=== PATIENT | male | born 1995 | race Hispanic/Latino ===

== ENCOUNTER 2018-09-24 14:12 | Emergency (ER) | payer BC, SELFPAY ==
[2018-09-24] MEDS ORDERED: Ondansetron ODT 4 MG TAB ONE (15:57)
[2018-09-24] MEDS ORDERED: Acetaminophen 500 MG TAB ONE (15:57)
== END 2018-09-24 17:28 | disposition home or self-care (01) ==
LOC: ERS 14:12
DX: B34.9 Viral infection, unspecified (principal); F17.210 Nicotine dependence, cigarettes, uncomplicated
CPT/HCPCS: 87804; 99284; Q0162

== ENCOUNTER 2019-05-20 20:54 | Emergency (ER) | payer BC, SELFPAY ==
[2019-05-20] MEDS ORDERED: Ibuprofen 200 MG TAB ONE (22:34)
[2019-05-20] MEDS ORDERED: Ciprofloxacin HCL/Dexameth Otic Drops 7.5 ml Bottle ONE (22:34)
== END 2019-05-20 22:39 | disposition home or self-care (01) ==
LOC: ERS 20:54
DX: H60.91 Unspecified otitis externa, right ear (principal); F17.210 Nicotine dependence, cigarettes, uncomplicated
CPT/HCPCS: 99282

== ENCOUNTER 2020-02-08 07:00 | Day surgery (SDC) | payer SELFPAY ==
--- NOTE | 2020-02-08 08:41 | RAD ---
RIGHT HAND 3 VIEWS: Date: 02/08/2020 HISTORY: Injury from trauma. FINDINGS: Minimal soft tissue swelling dorsally over the distal metacarpal region of the hand. This appears to be somewhat more prominent between the third and fourth digits. There is noted on the lateral view qu estionable small, thin foreign body. No fracture or dislocation. Focal soft tissue swelling dorsally over the third, fourth, and fifth distal metacarpal region. Possi ble several tiny foreign bodies. No fracture or dislocation. IMPRESSION: No acute fracture or dislocation. Possible several small foreign bodies. POS: [facility]
[2020-02-08] MEDS ORDERED: Sodium Chloride 0.9% 20 ML ONE (09:24)
[2020-02-08] MEDS ORDERED: Famotidine/PF 20 mg/2ml Vial ONE (09:31)
[2020-02-08] MEDS ORDERED: Fentanyl 100 MCG/2 ML VIAL ONE ×2 (09:39→10:20)
[2020-02-08] MEDS ORDERED: Sodium Chloride 0.9% 30 ML ONE (10:21)
[2020-02-08] MEDS ORDERED: Midazolam HCl 2 mg/2 ml Vial ONE (10:37)
[2020-02-08] MEDS ORDERED: Bacitracin Zinc Ointment 30 gm TUBE ONE (11:15)
[2020-02-08] MEDS ORDERED: Bupivacaine PF 0.5% 30 ML VIAL ONE (11:15)
[2020-02-08] MEDS ORDERED: Bupivacaine/Epinephrine 0.25% 30 ML VIAL ONE (11:16)
--- NOTE | 2020-02-08 14:07 | OP ---
DATE OF PROCEDURE: 02/08/2020 PREOPERATIVE DIAGNOSIS: Multiple lacerations over the dorsum of the right hand with possible laceration of the extensor tendon to the right middle finger. POSTOPERATIVE DIAGNOSES: A 5 cm laceration over the dorsum of the right hand with laceration of the extensor tendon to the right middle finger, 3 cm laceration over the dorsum of the base of the right little finger, and 1 cm laceration over the dorsal base of the ring finger. PROCEDURES PERFORMED: Irrigation and debridement of the lacerations of right hand with removal of foreign bodies, repair of the extensor tendon to the right middle finger, and repair of a 5 cm, 3 cm, and 1 cm laceration to the right hand. ANESTHESIA: General. DESCRIPTION OF PROCEDURE: The patient was given preoperative IV antibiotics, taken to the operating room, placed in the supine position. Satisfactory general anesthesia was performed. The right hand, wrist, and forearm were sterilely prepped and draped in usual fashion. After exsanguination, tourniquet at the proximal right forearm was raised to 250 mmHg. The laceration over the dorsum of the right middle finger at the MCP joint level was measured 5 cm, the one over the dorsum of the base of the little finger was measured 3 cm, and the one over the ring finger was measured at 1 cm. They were copiously irrigated with antibiotic solution with high-speed document management technician. There was some foreign material which did appear to be fragments from the TV screen that the patient had punched. After they were thoroughly cleansed, the extensor tendon to the right middle finger was repaired using 2-0 FiberWire in a modified Ballesteros suture and then additional 2-0 FiberWire in simple sutures to provide additional strength. The extensor blanca was also closed using the 2-0 FiberWire and 3-0 Rapide. The skin lacerations were then closed using 3-0 Rapide. Sterile dressing was applied using antibiotic gauze, 4x4s. An aluminum splint was applied to the palmar aspect to keep the MP joint at approximately 60 degrees of flexion, the PIP and DIP joint in full extension. This was wrapped with an Tung. Tourniquet was then released. The patient was awakened, extubated, and transferred to recovery room in stable condition. ESTIMATED BLOOD LOSS: None. COMPLICATIONS: None. TOURNIQUET TIME: 36 minutes. DISCHARGE MEDICATIONS: 1. Augmentin 875 mg one twice a day for three days, #6. 2. Tylenol No. 4 one every 6 hours as needed for pain for 10 days, #40. Follow up in my office in 10 to 12 days. Job ID: [id number]
[2020-02-08] MEDS ORDERED: Glycopyrrolate 0.2 MG/ML 5 ML SYRINGE ONE (14:56)
[2020-02-08] MEDS ORDERED: Ketorolac Tromethamine 30 MG/ML VIAL ONE (14:56)
[2020-02-08] MEDS ORDERED: Dexamethasone 20 MG/5 ML VIAL ONE (14:56)
[2020-02-08] MEDS ORDERED: Succinylcholine Chloride 20 MG/ML 10 ml SYRINGE FS ONE (14:56)
[2020-02-08] MEDS ORDERED: Lidocaine 1% PF 5 ML VIAL ONE (14:56)
[2020-02-08] MEDS ORDERED: Rocuronium Bromide 10 MG/ML (10ML VIAL) ONE (14:56)
[2020-02-08] MEDS ORDERED: Ondansetron PF 4 MG/2 ML Vial ONE (14:56)
[2020-02-08] MEDS ORDERED: PROPOFOL 200 MG/20 ML VIAL ONE (14:56)
== END 2020-02-08 13:55 | disposition home or self-care (01) ==
LOC: ERS 07:00 → SDC 08:41
PROVIDERS: ATTEND Emergency Medicine
PROC: 0LQ70ZZ Repair Right Hand Tendon, Open Approach (ICD-10-PCS; principal; 2020-02-08)
PROC: 0JBJ0ZZ Excision of Right Hand Subcutaneous Tissue and Fascia, Open Approach (ICD-10-PCS; 2020-02-08)
DX: S61.421A Laceration with foreign body of right hand, initial encounter (principal); F17.210 Nicotine dependence, cigarettes, uncomplicated; W22.8XXA Striking against or struck by other objects, initial encounter
CPT/HCPCS: 96374; J0690; J1100; J1885; J2001; J2250; J2405; J2704; J3010; J3370; Q4049; S0020; S0028

== ENCOUNTER 2021-07-02 08:36 | Emergency (ER) | payer SELFPAY ==
[2021-07-03 01:39] LABS: SARS-CoV-2 PCR by NAA Not Detected (NotDetected)
== END 2021-07-02 09:15 | disposition home or self-care (01) ==
LOC: ERS 08:36
DX: H66.92 Otitis media, unspecified, left ear (principal); F17.210 Nicotine dependence, cigarettes, uncomplicated; Z20.822 Contact with and (suspected) exposure to COVID-19
CPT/HCPCS: 99283; U0003; U0005

== ENCOUNTER 2023-05-09 13:31 | Emergency (ER) | payer SELFPAY ==
[2023-05-09 16:43] LABS: SARS-CoV-2 NAA Rapid Test Not Detected (NotDetected)
== END 2023-05-09 16:04 | disposition home or self-care (01) ==
LOC: ERS 13:31
DX: H66.91 Otitis media, unspecified, right ear (principal); B34.9 Viral infection, unspecified; Z20.822 Contact with and (suspected) exposure to COVID-19; Z87.891 Personal history of nicotine dependence
CPT/HCPCS: 99283